=== PATIENT | female | born 1980 | race Caucasian/White ===

== ENCOUNTER → 2021-11-01 | Outpatient (CLI) | payer BC ==
[2021-11-01 10:31] LABS: BASO # 0.06 K/mm3 (0.02-0.10); EOS # 0.15 K/mm3 (0.04-0.40); EOS % 2.3 % (1.0-5.0); HEMATOCRIT 44.7 % (37.0-47.0); HEMOGLOBIN 14.5 g/dL (12.5-16.0); LYMPH# 2.11 K/mm3 (1.50-4.00); MEAN CELL VOLUME 90 fl (78-100); MEAN CORPUSCULAR HEMOGLOBIN 29 pg (27-31); MEAN CORPUSCULAR HGB CONC 32 g/dL (33-37); MEAN PLATELET VOLUME 10.9 fl (7.4-10.4); NEU # 3.78 K/mm3 (1.40-6.50); PLATELET COUNT 283 K/mm3 (130-400); RED BLOOD COUNT 4.97 M/mm3 (4.10-5.30); RED CELL DISTRIBUTION WIDTH 12.8 % (11.5-14.5); WHITE BLOOD COUNT 6.5 K/mm3 (4.8-10.8)
[2021-11-01 10:43] LABS: ALBUMIN 4.3 g/dL (3.5-5.0); POTASSIUM 4.1 mmol/L (3.5-5.1)
[2021-11-01 10:44] LABS: CALCIUM 9.3 mg/dL (8.3-10.5)
[2021-11-01 10:46] LABS: TOTAL PROTEIN 7.5 g/dL (6.4-8.3)
[2021-11-01 10:47] LABS: TOTAL BILIRUBIN 0.6 mg/dL (0.2-1.2)
== END ==
LOC: LAB 09:50
PROVIDERS: Physician Assistant
DX: Z00.00 Encounter for general adult medical examination without abnormal findings (principal); Z13.29 Encounter for screening for other suspected endocrine disorder; K90.9 Intestinal malabsorption, unspecified; M95.3 Acquired deformity of neck; R53.83 Other fatigue

== ENCOUNTER → 2021-11-08 | Outpatient (CLI) | payer BC | LOC: MAMMO 13:49 → RAD 14:00 → MAMMO 14:30 | DX: Z12.31 Encounter for screening mammogram for malignant neoplasm of breast (principal); Z98.82 Breast implant status; E04.1 Nontoxic single thyroid nodule ==

== ENCOUNTER → 2022-03-30 | Outpatient (CLI) | payer BC ==
[2022-04-01 11:41] LABS: FOLLICLE STIMULATING HORMONE 2.5 mIU/mL (()); LUTENIZING HORMONE 5.8 mIU/mL (())
[2022-04-03 14:40] LABS: ANA SCREEN with REFLEX Negative (Negative)
[2022-04-05 07:03] LABS: ESTRONE (E1) LEVEL 80 pg/mL (())
== END ==
LOC: LAB 17:08
PROVIDERS: Physician Assistant
DX: N95.1 Menopausal and female climacteric states (principal); M25.50 Pain in unspecified joint; R53.83 Other fatigue; R45.4 Irritability and anger

== ENCOUNTER → 2024-03-31 | Outpatient (CLI) | payer BC ==
[2024-03-31 15:25] LABS: BASO # 0.04 K/mm3 (0.02-0.10); EOS # 0.18 K/mm3 (0.04-0.40); EOS % 2.1 % (1.0-5.0); HEMATOCRIT 42.8 % (37.0-47.0); HEMOGLOBIN 13.9 g/dL (12.5-16.0); LYMPH# 2.68 K/mm3 (1.50-4.00); MEAN CELL VOLUME 89 fl (78-100); MEAN CORPUSCULAR HEMOGLOBIN 29 pg (27-31); MEAN CORPUSCULAR HGB CONC 33 g/dL (33-37); MEAN PLATELET VOLUME 10.9 fl (7.4-10.4); MONO # 0.42 K/mm3 (0.20-0.80); NEU # 5.23 K/mm3 (1.40-6.50); PLATELET COUNT 257 K/mm3 (130-400); RED BLOOD COUNT 4.83 M/mm3 (4.10-5.30); RED CELL DISTRIBUTION WIDTH 12.5 % (11.5-14.5); WHITE BLOOD COUNT 8.6 K/mm3 (4.8-10.8)
[2024-03-31 15:29] LABS: ALBUMIN 4.3 g/dL (3.5-5.0)
[2024-03-31 15:30] LABS: CALCIUM 9.4 mg/dL (8.3-10.5)
[2024-03-31 15:31] LABS: TOTAL PROTEIN 7.1 g/dL (6.4-8.3)
[2024-03-31 15:33] LABS: TOTAL BILIRUBIN 0.4 mg/dL (0.2-1.2)
[2024-03-31 22:08] LABS: FOLLICLE STIMULATING HORMONE 1.9 mIU/mL (()); LUTENIZING HORMONE 1.6 mIU/mL (())
[2024-04-01 12:06] LABS: ANA SCREEN with REFLEX Positive (Negative)
== END ==
LOC: LAB 14:59
PROVIDERS: Physician Assistant
DX: Z13.220 Encounter for screening for lipoid disorders (principal); Z13.29 Encounter for screening for other suspected endocrine disorder; E89.41 Symptomatic postprocedural ovarian failure; M95.3 Acquired deformity of neck; M25.50 Pain in unspecified joint; Z83.49 Family history of other endocrine, nutritional and metabolic diseases

== ENCOUNTER → 2024-07-14 | Outpatient (CLI) | payer BC ==
[~2024-07-14] MED LIST: Iohexol 300 - 100 ML VIAL IV ONE
[2024-07-14 12:16] LABS: BASO # 0.03 K/mm3 (0.02-0.10); EOS # 0.18 K/mm3 (0.04-0.40); EOS % 2.2 % (1.0-5.0); HEMATOCRIT 41.3 % (37.0-47.0); HEMOGLOBIN 13.2 g/dL (12.5-16.0); LYMPH# 2.22 K/mm3 (1.50-4.00); MEAN CELL VOLUME 91 fl (78-100); MEAN CORPUSCULAR HEMOGLOBIN 29 pg (27-31); MEAN CORPUSCULAR HGB CONC 32 g/dL (33-37); MEAN PLATELET VOLUME 10.5 fl (7.4-10.4); MONO # 0.52 K/mm3 (0.20-0.80); NEU # 5.14 K/mm3 (1.40-6.50); PLATELET COUNT 263 K/mm3 (130-400); RED BLOOD COUNT 4.56 M/mm3 (4.10-5.30); WHITE BLOOD COUNT 8.1 K/mm3 (4.8-10.8)
[2024-07-14 12:23] LABS: ALBUMIN 3.8 g/dL (3.5-5.0)
[2024-07-14 12:24] LABS: CALCIUM 8.8 mg/dL (8.3-10.5)
[2024-07-14 12:26] LABS: TOTAL PROTEIN 5.9 g/dL (6.4-8.3)
[2024-07-14 12:27] LABS: TOTAL BILIRUBIN 0.7 mg/dL (0.2-1.2)
[2024-07-14 12:40] LABS: URINE APPEARANCE CLEAR (CLEAR); URINE BILIRUBIN NEGATIVE (NEGATIVE); URINE BLOOD TRACE-INTACT (NEGATIVE); URINE COLOR YELLOW (YELLOW); URINE GLUCOSE NEGATIVE (NEGATIVE); URINE KETONE NEGATIVE (NEGATIVE); URINE LEUKOCYTE ESTERASE NEGATIVE (NEGATIVE); URINE NITRATE NEGATIVE (NEGATIVE); URINE PROTEIN(semi-quant) NEGATIVE (NEGATIVE)
[2024-07-14 12:46] LABS: URINE WBC 0-1 /hpf (0-3)
== END ==
LOC: LAB 11:47
PROVIDERS: Physician Assistant
DX: N39.0 Urinary tract infection, site not specified (principal); R10.11 Right upper quadrant pain
CPT/HCPCS: Q9967